=== PATIENT | male | born 1940 | race Caucasian/White ===

== ENCOUNTER 2021-07-28 10:29 | Outpatient (CLI) | payer MEDICARE, BC | END 2021-07-28 10:30 | disposition home or self-care (01) | LOC: CSHWCC 10:29 | PROVIDERS: ATTEND Nurse Practitioner Family | DX: I87.313 Chronic venous hypertension (idiopathic) with ulcer of bilateral lower extremity (principal); I87.2 Venous insufficiency (chronic) (peripheral); L97.812 Non-pressure chronic ulcer of other part of right lower leg with fat layer exposed; L97.222 Non-pressure chronic ulcer of left calf with fat layer exposed; M10.9 Gout, unspecified; I10 Essential (primary) hypertension; I48.91 Unspecified atrial fibrillation; R60.0 Localized edema | CPT/HCPCS: 11042; 11045; 97139; G0463; 99213 ==

== ENCOUNTER 2021-09-29 09:23 | Outpatient (CLI) | payer MEDICARE, BC | END 2021-09-29 09:24 | disposition home or self-care (01) | LOC: CSHWCC 09:23 | PROVIDERS: ATTEND Nurse Practitioner Family | DX: I87.2 Venous insufficiency (chronic) (peripheral) (principal); I10 Essential (primary) hypertension; I48.91 Unspecified atrial fibrillation; M10.9 Gout, unspecified; R60.0 Localized edema ==